=== PATIENT | male | born 1955 | race Caucasian/White ===

== ENCOUNTER → 2016-12-01 | Outpatient (CLI) | payer OTHER ==
[~2016-12-01] MED LIST: ANUSOL-HC SUPP25 M1 PR; METAMUCIL1 PKT PO; MOTRIN IB200 M1 PO; NO MEDICATIONS; VICODIN ES
--- NOTE | ~2016-12-01 | CR97 ---
[facility] A Service of [facility] & [facility] RADIOLOGY TEXT RESULTS PATIENT: DOMINIQUE LAST LOCATION: [facility] : 57 UNIT #: [id number] AGE: [address]: LESLIE CURRIE MD SEX: M ORDER DR: [id number] [facility]. [place], [place] [address] [id number] O MR#: [id number] #: [id number] NAME: DOMINIQUE LAST : 1955 SEX: M STUDY DATE/TIME: 12/01/2016 9:03 UNIT: [facility] ROOM: STUDY DESCRIPTION: CR Esophagram Attending Physician: Leslie Currie M.D. Referring Physician: Leslie Currie M.D. Ordering Physician: Leslie Currie M.D. Primary Care Physician: Leslie Currie M.D. MEDICAL IMAGING REPORT This report is preliminary unless electronic signature is present EXAM Double contrast esophagram INDICATION Chest pain, heartburn, especially at night. It has been present for 1-month. TECHNIQUE Patient was administered bicarbonate crystals and subsequently was administered a thick and thin barium. Multiple fluoroscopic images were obtained. FINDINGS Patient's cervical esophagus appears unremarkable as does the hypopharynx. Esophageal motility appears within normal limits. Within the wxp-gl-leayo esophagus, there is an outpouching arising from the esophagus favored to represent an esophageal diverticulum. It is in the proximity of the left hilum and perhaps could be related to hilar granulomatous disease and certainly exact etiology is not clear from this examination. Given patient's history, I would suggest further evaluation with dedicated CT of the chest with contrast. Endoscopy also may be complimentary. No reflux was identified and no hiatal hernia was seen. IMPRESSION There is an outpouching identified from the [id number] thoracic esophagus. Exact etiology is uncertain. Potentially it could reflect a traction diverticulum related to adjacent hilar granulomatous disease, but further evaluation with a dedicated CT of the chest with contrast is recommended. An esophagoscopy may also be complimentary. Total fluoroscopy time was 1.1 minutes and a total of 17 fluoroscopic images were obtained. [facility] A Service of [facility] & [facility] RADIOLOGY TEXT RESULTS PATIENT: DOMINIQUE LAST LOCATION: [facility] : 57 UNIT #: [id number] AGE: [address]: LESLIE CURRIE MD SEX: M ORDER DR: Dictated by... Mechelle Garcia M.D. THIS IS AN ELECTRONICALLY VERIFIED REPORT Mechelle Garcia M.D. at 12/02/2016 5:11 PM AFF/aa TD: 12/02/2016 14:37 JOB #: [id number] MEDICAL IMAGING REPORT Page 1 of 1 COPY
== END | disposition home or self-care (01) ==
LOC: CRAD 08:15
DX: R13.10 Dysphagia, unspecified (principal); R07.9 Chest pain, unspecified
CPT/HCPCS: 74220